=== PATIENT | male | born 1940 | race Two or more races ===

== ENCOUNTER 2017-01-03 09:00 | Outpatient (RCR) | payer MEDICARE, OTHER ==
[~2017-01-03 09:00] MED LIST: ATORVASTATIN CA20 MG ORAL; BENAZEPRIL HCL40 MG ORAL; CLOPIDOGREL75 MG ORAL; COLACE100 MG ORAL; CYCLOBENZAPRINE10 MG ORAL; INSULIN; METOPROLOL TART50 M1 ORAL; PERCOCET 5-3251 EACH ORAL; TAMSULOSIN HCL0.4 MG ORAL; TYLENOL325 MG ORAL; [UNRECOGNIZED DRUG - REMARK]
== END 2017-01-14 | disposition home or self-care (01) ==
LOC: PTY 09:00
DX: G60.9 Hereditary and idiopathic neuropathy, unspecified (principal); R53.1 Weakness; Z91.81 History of falling; I10 Essential (primary) hypertension; E11.9 Type 2 diabetes mellitus without complications
CPT/HCPCS: 97018; 97110; 97140; 97161; G8984; G8985

== ENCOUNTER 2017-01-20 08:45 | Outpatient (RCR) | payer MEDICARE, OTHER | END 2017-02-14 | disposition home or self-care (01) | LOC: PTY 08:45 | DX: G60.9 Hereditary and idiopathic neuropathy, unspecified (principal); R53.1 Weakness; Z91.81 History of falling; I10 Essential (primary) hypertension; E11.9 Type 2 diabetes mellitus without complications ==

== ENCOUNTER 2017-09-15 09:18 | Outpatient (RCR) | payer MEDICARE, OTHER | END 2017-09-16 | disposition home or self-care (01) | LOC: PTY 09:18 | DX: G62.9 Polyneuropathy, unspecified (principal) | CPT/HCPCS: 97035; 97110; 97140; 97162; G8981; G8982 ==

== ENCOUNTER 2017-12-10 16:09 | Outpatient (CLI) | payer MEDICARE, OTHER ==
--- NOTE | 2017-12-10 16:59 | Diagnostic Imaging Report ---
Indication: Cough Technique: 2 views of the chest Comparison: 09/23/2017 Findings: Lungs and pleural spaces are clear. There is again demonstrated elevation of the right hemidiaphragm. The heart size is normal. There are median sternotomy sutures. The bones are unremarkable except for mild degenerative thoracic spondylosis changes Impression: No acute process
== END 2017-12-10 18:09 | disposition home or self-care (01) ==
LOC: RAD 16:09
DX: R05 Cough (principal); M47.894 Other spondylosis, thoracic region
CPT/HCPCS: 71046

== ENCOUNTER 2018-12-15 17:43 | Inpatient (IN) | payer MEDICARE, OTHER ==
[~2018-12-15] VITALS: Ht 162.6 cm; Wt 61.7 kg
--- NOTE | 2018-12-15 19:54 | NUR ---
NURSE NOTES: Received pt from ER staff. Pt awake, alert, and talkative. Family at bedside. Bed in lowest position. Call light within reach. Will continue to monitor.
[2018-12-15 20:00] VITALS: BP 145/55
[2018-12-15 21:56] LABS: BASOPHILS % (AUTO) 0.9 % (0.0-2.0); EOSINOPHILS % (AUTO) 1.6 % (0.0-3.0); HEMATOCRIT 32.2 % (42.0-52.0); HEMOGLOBIN 10.9 G/DL (14.2-18.0); LYMPHOCYTES % (AUTO) 14.4 % (20.0-45.0); MEAN CORPUSCULAR VOLUME 92 FL (80-99); NEUTROPHILS % (AUTO) 75.2 % (45.0-75.0); PLATELET COUNT 164 K/UL (150-450); RED BLOOD COUNT 3.48 M/UL (4.70-6.10); RED CELL DISTRIBUTION WIDTH 12.6 % (11.6-14.8); WHITE BLOOD COUNT 7.8 K/UL (4.8-10.8)
[2018-12-15] MEDS ORDERED: Norco 5mg/325mg tab ORAL PRN (22:15)
[2018-12-15 22:25] LABS: ANION GAP 9 mmol/L (5-15); BLOOD UREA NITROGEN 35 mg/dL (7-18); CALCIUM 8.9 MG/DL (8.5-10.1); CARBON DIOXIDE 27 MMOL/L (21-32); CHLORIDE 104 MMOL/L (98-107); CREATININE 1.5 MG/DL (0.55-1.30); POTASSIUM 3.9 MMOL/L (3.5-5.1); SODIUM 140 MMOL/L (136-145)
[2018-12-15 22:36] LABS: ALANINE AMINOTRANSFERASE 30 U/L (12-78); ALBUMIN 3.5 G/DL (3.4-5.0); ALBUMIN/GLOBULIN RATIO 1.3 (1.0-2.7); ALKALINE PHOSPHATASE 120 U/L (46-116); ASPARTATE AMINO TRANSFERASE 51 U/L (15-37)
--- NOTE | 2018-12-15 23:50 | NUR ---
NURSE NOTES: Pts family stated that he fell last 12/[address] home. Pt has right arm bruising and weak use of the arm. Otherwise skin intact. Lung sounds clear. Vital signs stable. BG elevated, 164, and is answering questions appropriately. Primarily Italian speaking but also speaks Sinhala. 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 RFA 20G placed. EKG showed nsr with inferior infarct of undetermined age. Dr. Steel input orders. Will continue to monitor.
[2018-12-16] VITALS: BP 119/51
--- NOTE | 2018-12-16 00:45 | Progress Note ---
DATE: 12/15/2018 "NOTE: INCOMPLETE DICTATION" CARDIOLOGY PROGRESS NOTE REQUESTING PHYSICIAN: Maxi Douglas M.D. REASON: Syncope in the setting of ischemic heart disease. Satinder Steel M.D. DR: CHAZ JOB#: [id number] CC:
--- NOTE | 2018-12-16 01:45 | Consultation ---
DATE OF CONSULTATION: 12/15/2018 CARDIOLOGY CONSULT CONSULTING PHYSICIAN: Satinder Steel M.D. REQUESTING PHYSICIAN: Maxi Douglas M.D. REASON: Syncope in the setting of ischemic heart disease. HISTORY: This is a 78-year-old male with a longstanding history of ischemic cardiomyopathy with status post coronary artery bypass graft surgery over 20 years ago. He has a known history of left ventricular dysfunction with his baseline ejection fraction in the range of 45%. Last year, he was noted to have an abnormal stress test and underwent coronary angiography, which revealed diffuse disease, but patent grafts and recommendations for medical management were noted. On December 11, 2018, the patient was in his usual state of health, but noted to be walking to a store when he apparently began experiencing dizziness, lightheadedness, and unsteadiness on his feet and passed out. He had a low sugar when paramedics arrived. He was not brought in the emergency room, but sustained significant trauma to his right side and head. He was seen in my office yesterday and referred for radiographs and subsequently because of worsening pain and difficulty with independent function, he was admitted for further care. PAST MEDICAL HISTORY: Coronary artery disease, status post CABG; hypertensive heart disease; insulin-requiring diabetes mellitus; diabetic neuropathy; chronic kidney disease; hyperlipidemia; erectile dysfunction; prostatic hypertrophy; history of urinary retention; and B12 deficiency due to pernicious anemia. MEDICATIONS PRIOR TO ADMISSION: Reviewed and reconciled. ALLERGIES: None known. FAMILY HISTORY: Diabetes in first-degree relatives. REVIEW OF SYSTEMS: Cardiac workup noted above. He does have a history of nonsustained ventricular ectopy. There is no history of asthma or abnormal blood clotting. There is no history of seizure or stroke. He does have significant arterial occlusive disease. He does have prostatic hypertrophy and difficulty voiding at times. His diabetes is managed with insulin. He has had hypoglycemia in the past. There is no history of thyroid disorder. He is on anti-lipid therapy with LDL less than 70. He has not had any change in bowel habits. There is no history of prostate cancer or colon malignancies. PHYSICAL EXAMINATION: VITAL SIGNS: Blood pressure 124/60, pulse 64, and respirations 18. SKIN: Bruising on face, right chest, and lower extremities. There is also abrasion below the left eye. HEENT: Conjunctivae are pink. Pupils are equal, round, and reactive to light and accommodation. Extraocular movements intact. Oropharynx clear. NECK: Supple. Jugular venous pressure normal. LUNGS: Clear. CARDIAC: Regular rhythm and rate. Normal S1 and S2 with a fourth heart sound. Median sternotomy scar. ABDOMEN: Soft and nontender. EXTREMITIES: Without edema. Right arm cannot be raised due to pain at the shoulder site. There are no distal ischemic changes. LABORATORY AND IMAGING DATA: White count 7.8 and hemoglobin 10.9. Troponin 0.03. Albumin 3.5. BUN 35, creatinine 1.5, glucose 188, and potassium 3.9. EKG pending. IMPRESSION: 1. Syncope, possibly hypoglycemic. 2. Multiple contusions. 3. Right shoulder immobility. 4. Ischemic cardiomyopathy. 5. History of ventricular arrhythmia. PLAN: Cardiac monitoring. Hold Plavix. X-rays of the extremities and chest. Hold parameters for antihypertensives. Decrease dose of long-acting insulin and we titrate. We will follow. Satinder Steel M.D. DR: CHAZ JOB#: [id number] CC:
[2018-12-16 04:00] VITALS: BP 131/51
[2018-12-16] MEDS: NovoLOG Insulin Flexpen SUBQ SCH ×4 (06:30→20:51)
[2018-12-16] MEDS ORDERED: NovoLOG Insulin Flexpen SUBQ SCH (06:30)
--- NOTE | 2018-12-16 07:50 | NUR ---
NURSE NOTES: Report received from YESSI Bardales. Patient in RA, denies any pain or SOB, IV patent flushed and SL. Bed in lowest position, side rails upx2, brakes engaged, alarm on. Patient had a recent fall prior to hospitalization, reminder given to use call light. Call light within easy reach.
--- NOTE | 2018-12-16 07:54 | NUR ---
HAND-OFF: Report given to YESSI Cuveas. Pt stable.
[2018-12-16 08:00] VITALS: BP 128/69
[2018-12-16] MEDS ORDERED: Benazepril 10mg tab ONE (08:22)
[2018-12-16] MEDS: Metoprolol 25mg tab ORAL SCH ×2 (08:38→20:56)
[2018-12-16] MEDS: Aspirin Baby 81mg ORAL SCH (08:38)
[2018-12-16 12:00] VITALS: BP 113/56
--- NOTE | 2018-12-16 13:45 | NUR ---
NURSE NOTES: Patient was found wondering around room 204. Patient back to his room. Call made to son, Patient talking to his son at this time. Will continue to reorient.
--- NOTE | 2018-12-16 13:48 | Diagnostic Imaging Report ---
Indication: Right shoulder pain Findings: 3 views of the right shoulder were obtained. Acute nondisplaced fracture of the surgical neck of the right humerus demonstrated. The bones are osteopenic. Alignment is normal. IMPRESSION: Acute right surgical neck fracture
--- NOTE | 2018-12-16 13:49 | Diagnostic Imaging Report ---
Indication: Dyspnea Comparison: 12/10/2017 A single view chest radiograph was obtained. Findings: Sternotomy noted. No definite infiltrate or pulmonary vascular congestion identified. The heart is enlarged. The aorta is mildly enlarged consistent with atherosclerotic vascular disease. The bones are osteopenic. Impression: No acute disease. No change
--- NOTE | 2018-12-16 13:49 | Diagnostic Imaging Report ---
Indication: Pain Findings: 2 views of the right humerus were obtained. Acute surgical neck fracture of the right humerus demonstrated. Remainder of the humeral shaft is normal. Bones are osteopenic. IMPRESSION: Acute fracture of the right humeral neck
[2018-12-16 16:00] VITALS: BP 129/71
--- NOTE | 2018-12-16 17:23 | Cardiology Report ---
APPROVED REPORT EKG Measurement Heart [id number] Normal sinus rhythm Inferior infarct, age undetermined Abnormal ECG
--- NOTE | 2018-12-16 19:04 | NUR ---
CASE MANAGEMENT: REVIEW 78/M PRESENTED TO ED FROM HOME CC: SYNCOPE SI: ORTHOSTATIC HYPOTENSION T 97.0 HR 60 RR 20 BP 113/56 SAT 94% ROOM AIR H/H 10.9/32.2 TROPONIN I 0.033 IS: LOTENSIN PO X1 PATIENT ADMITTED TO TELEMETRY UNIT 12/15/2018 DCP: PATIENT IS FROM HOME
--- NOTE | 2018-12-16 19:40 | NUR ---
HAND-OFF: Report given to Catia. Patient's son at bedside. Sling to be applied on R arm. Plan of care endorsed.
--- NOTE | 2018-12-16 19:50 | NUR ---
NURSE NOTES: Received pt from YESSI Cuevas. Pt awake, alert, and talkative. Family at bedside. Pt expressed how bad he wanted to go home and was educated on the risks of signing the AMA form. Bed in lowest position. Call light within reach. Will continue to monitor.
[2018-12-16 20:00] VITALS: BP 140/54
--- NOTE | 2018-12-16 20:15 | History and Physical Report ---
DATE OF ADMISSION: 12/15/2018 CHIEF COMPLAINT: Multiple falls. HISTORY OF PRESENT ILLNESS: The patient is a pleasant 78-year-old male well known to me. 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 He suffered a fall several days prior to admission. He saw his gang ripsaw operator. He was noted to have significant bruising. There was a concern about the patient's safety. He is now admitted for further evaluation and care. The patient complains of pain in the right arm. He denies any fevers or chills. He has had no chest pain or shortness of breath. PAST MEDICAL HISTORY: As above. PAST SURGICAL HISTORY: Includes a CABG. CURRENT MEDICATIONS: Reconciled and reviewed. ALLERGIES: None. FAMILY HISTORY: None. SOCIAL HISTORY: Negative for tobacco, ethanol, or drugs. REVIEW OF SYSTEMS: GENERAL: No fever or chills. HEENT: Mild headache, but no visual changes. CARDIOPULMONARY: No chest pain or shortness of breath. Positive history of coronary artery bypass graft. GASTROINTESTINAL: No nausea or vomiting. GENITOURINARY: No urgency or frequency. MUSCULOSKELETAL: Positive right shoulder pain. NEUROLOGIC: No history of seizures. PHYSICAL EXAMINATION: VITAL SIGNS: Temperature 98, pulse 71, respirations 20, and blood pressure 128/69. GENERAL: The patient is well-developed male, in no apparent distress. He is awake, alert, and oriented x4. HEENT: There is bruising noted to the right side of his forehead, face, chest, and around the left eye. NECK: Supple. HEART: Regular rate and rhythm. LUNGS: Clear. ABDOMEN: Soft, nontender, and nondistended. EXTREMITIES: Without clubbing, cyanosis, or edema. The patient is unable to mobilize right arm due to significant pain. PERTINENT DATA: White count is 8, hemoglobin 10, hematocrit 33, and platelets of 164,000. Sodium 140, BUN 35, and creatinine . Troponin 0.033. X-ray of the shoulder shows a proximal right humerus fracture. ASSESSMENT: This is a pleasant male with a history of ischemic cardiomyopathy, hypertension, diabetes, and chronic kidney disease, admitted with complaints of falls. This is possibly due to syncope. He has a right humerus fracture sustained likely due to these falls. PLAN: 1. Orthopedics consultation. 2. Cardiology evaluation. 3. Cautious hydration. 4. Monitor orthostatics. 5. Monitor Accu-Cheks. 6. Sliding scale coverage. Maxi Douglas M.D. DR: KAISER JOB#: [id number] CC:
[2018-12-16] MEDS ORDERED: Tamsulosin 0.4mg cap ORAL SCH (21:00)
--- NOTE | 2018-12-16 22:45 | Progress Note ---
DATE: 12/16/2018 CARDIOLOGY PROGRESS NOTE SUBJECTIVE: The patient still has pain on his right side. Unable to move arm. No shortness of breath. Some chest pain referred to his arm region noted. Cardiac monitoring, sinus rhythm, sinus arrhythmia, occasional PAC, no pauses. OBJECTIVE: VITAL SIGNS: Blood pressure 129/71, pulse 68, respiratory rate 20, afebrile. SKIN: Bruising over arms. LUNGS: Clear. CARDIAC: Regular rhythm and rate. Normal S1 and S2 with a fourth heart sound. ABDOMEN: Soft. EXTREMITIES: No edema. LABORATORY AND DIAGNOSTIC DATA: Reviewed. X-ray of the right upper extremity notable for fracture of the humeral head. IMPRESSION: 1. Hypoglycemic syncope. 2. Possible orthostasis contributing to syncope. 3. Right upper extremity humeral fracture. 4. Ischemic cardiomyopathy. 5. Chronic systolic and diastolic congestive heart failure. 6. Insulin-requiring diabetes mellitus. PLAN: 1. Pain control. 2. Titrate insulin. 3. Hold parameters for cardiovascular regimen based on clinical parameters. 4. Orthopedic consultation. 5. DVT prophylaxis. 6. Monitor orthostatics. 7. Continue cardiac monitoring. Satinder Steel M.D. DR: Niko JOB#: [id number] CC:
[2018-12-17] VITALS: BP 136/59
[2018-12-17 04:00] VITALS: BP 117/57
[2018-12-17] MEDS: NovoLOG Insulin Flexpen SUBQ SCH ×2 (06:18→11:49)
[2018-12-17 07:16] LABS: BASOPHILS % (AUTO) 1.6 % (0.0-2.0); EOSINOPHILS % (AUTO) 4.9 % (0.0-3.0); HEMATOCRIT 32.3 % (42.0-52.0); LYMPHOCYTES % (AUTO) 23.5 % (20.0-45.0); MEAN CORPUSCULAR VOLUME 93 FL (80-99); MONOCYTES % (AUTO) 8.4 % (1.0-10.0); NEUTROPHILS % (AUTO) 61.6 % (45.0-75.0); PLATELET COUNT 164 K/UL (150-450); RED BLOOD COUNT 3.47 M/UL (4.70-6.10); RED CELL DISTRIBUTION WIDTH 12.8 % (11.6-14.8); WHITE BLOOD COUNT 6.3 K/UL (4.8-10.8)
--- NOTE | 2018-12-17 07:17 | NUR ---
HAND-OFF: Report given to YESSI Cuevas. Endorsed that pt has no IV and Dr. Steel and Misael made aware. Pt stable.
--- NOTE | 2018-12-17 07:40 | General Progress Note ---
Assessment/Plan Problem List: (1) CAD (coronary artery disease) ICD Codes: I25.10 - Atherosclerotic heart disease of cabaz[place] coronary artery without angina pectoris SNOMED: 88321394 (2) Dementia, Alzheimer's, with behavior disturbance ICD Codes: G30.9 - Alzheimer's disease, unspecified; F02.81 - Dementia in other diseases classified elsewhere with behavioral disturbance SNOMED: 8499584324148 (3) Accelerated essential hypertension ICD Codes: I10 - Essential (primary) hypertension SNOMED: 81982001 (4) Diabetes ICD Codes: E11.9 - Type 2 diabetes mellitus without complications SNOMED: 29495462 (5) Syncope ICD Codes: R55 - Syncope and collapse SNOMED: 005747520 Status: stable Assessment/Plan pain rx anxiolytics as needed ortho eval pending check tfts, b12 etc. Subjective ROS Limited/Unobtainable: Yes Constitutional: Reports: no symptoms HEENT: Reports: no symptoms Cardiovascular: Reports: no symptoms Respiratory: Reports: no symptoms Gastrointestinal/Abdominal: Reports: no symptoms Genitourinary: Reports: no symptoms Neurologic/Psychiatric: Reports: no symptoms Endocrine: Reports: no symptoms Hematologic/Lymphatic: Reports: no symptoms Allergies: Coded Allergies: No Known Allergies (Verified , 10/19/09) All Systems: reviewed and negative except above Subjective confused. pulled out iv. trying to leave the hospital. c/o right shoulder.arm pain. Objective Last 24 Hour Vital Signs Date Time Temp Pulse Resp B/P (MAP) Pulse Ox O2 Delivery O2 Flow Rate FiO2 12/17/18 04:00 64 12/17/18 04:00 97.6 71 18 117/57 (77) 97 12/17/18 00:00 71 12/17/18 00:00 97.8 82 18 136/59 (84) 97 12/16/18 21:00 Room Air 12/16/18 20:56 78 140/54 12/16/18 20:00 75 12/16/18 20:00 97.5 78 17 140/54 (82) 97 12/16/18 16:00 90 12/16/18 16:00 97.3 68 20 129/71 (90) 97 12/16/18 12:00 97.9 60 20 113/56 (75) 97 12/16/18 12:00 61 12/16/18 09:26 128/61 12/16/18 09:00 Room Air 12/16/18 08:38 71 128/69 12/16/18 08:00 97.9 71 20 128/69 (88) 99 12/16/18 08:00 78 Intake and Output 12/16/18 12/17/18 19:00 07:00 Intake Total 360 ml Balance 360 ml Intake Oral 360 ml # Voids 4 3 Laboratory Tests 12/17/18 06:40: White Blood Count 6.3, Red Blood Count 3.47L, Hemoglobin 11.0L, Hematocrit 32.3L , Mean Corpuscular Volume 93, Mean Corpuscular Hemoglobin 31.7H, Mean Corpuscular Hemoglobin Concent 34.1, Red Cell Distribution Width 12.8, Platelet Count 164, Mean Platelet Volume 6.9, Neutrophils (%) (Auto) 61.6, Lymphocytes (% ) (Auto) 23.5, Monocytes (%) (Auto) 8.4, Eosinophils (%) (Auto) 4.9H, Basophils (%) (Auto) 1.6, Sodium Level [Pending], Potassium Level [Pending], Chloride Level [Pending], Carbon Dioxide Level [Pending], Blood Urea Nitrogen [Pending], Creatinine [Pending], Estimat Glomerular Filtration Rate [Pending], Glucose Level [Pending], Calcium Level [Pending], Magnesium Level [Pending], Total Bilirubin [Pending], Aspartate Amino Transf (AST/SGOT) [Pending], Alanine Aminotransferase (ALT/SGPT) [Pending], Alkaline Phosphatase [Pending], Total Protein [Pending], Albumin [Pending], Globulin [Pending] Height (Feet): 5 Height (Inches): 4.00 Weight (Pounds): 136 General Appearance: WD/WN, alert Neck: supple Cardiovascular: normal rate Respiratory/Chest: chest wall non-tender, lungs clear, normal breath sounds Abdomen: normal bowel sounds, non tender, soft, no organomegaly Edema: no edema noted Arm (L), no edema noted Arm (R), no edema noted Leg (L), no edema noted Leg (R), no edema noted Pedal (L), no edema noted Pedal (R), no edema noted Generalized Maxi Douglas MD Dec 17, 2018 07:40
[2018-12-17 07:43] LABS: ALANINE AMINOTRANSFERASE 30 U/L (12-78); ALBUMIN 3.4 G/DL (3.4-5.0); ALKALINE PHOSPHATASE 112 U/L (46-116); ANION GAP 11 mmol/L (5-15); ASPARTATE AMINO TRANSFERASE 39 U/L (15-37); BILIRUBIN,TOTAL 0.8 MG/DL (0.2-1.0); BLOOD UREA NITROGEN 32 mg/dL (7-18); CALCIUM 8.8 MG/DL (8.5-10.1); CARBON DIOXIDE 23 MMOL/L (21-32); CHLORIDE 107 MMOL/L (98-107); CREATININE 1.3 MG/DL (0.55-1.30); POTASSIUM 4.3 MMOL/L (3.5-5.1); SODIUM 141 MMOL/L (136-145)
[2018-12-17 08:00] VITALS: BP 117/77
--- NOTE | 2018-12-17 08:54 | NUR ---
REHAB MED PT NOTE CONSULT RECEIVED, EVAL COMPLETED, PATIENT WILL BENEFIT FROM SKILLED PT DURING STAY FOR RETURN TO [facility]. AWAITING ORTHO CONSULT REGARDING RUE FRACTURE PER RAD REPORT. FOLLOWING ORTHO CONSULT WILL CONTINUE WITH FURTHER REHAB RECOMMENDATIONS AND PLAN, UNTIL THEN PHYSICAL THERAPY WILL WORK ON BALANCE AND GAIT AND TRANSFER TRAINING WITH PT WITH [facility] UNTIL FURTHER INSTRUCTION FROM ORTHO MD. PLAN OF CARE INITIATED. RON WALLACE PT DPT Addendum: 12/17/18 at 0854 by RON WALLACE PT Amended: Links added.
[2018-12-17] MEDS: Aspirin Baby 81mg ORAL SCH (09:18)
[2018-12-17] MEDS: Metoprolol 25mg tab ORAL SCH (09:20)
--- NOTE | 2018-12-17 10:31 | NUR ---
MRI BRAIN COMPLETED.
[2018-12-17 12:00] VITALS: BP 123/67
--- NOTE | 2018-12-17 12:16 | Diagnostic Imaging Report ---
Indication: Syncope, altered level consciousness Technique: sagittal T1 fast spin echo, axial T1 FLAIR, axial T2 FLAIR, axial T2 FS PROPELLER, axial T2* GRE, axial diffusion weighted images. ADC and exponential ADC maps generated Comparison: 10/20/2009, also head CT 12/15/2014 Findings: No abnormal areas of restricted diffusion to suggest acute infarction. No acute hemorrhage or edema. No mass effect nor midline shift. There is age-related enlargement of the ventricles and extra axial CSF spaces. There is periventricular deep white matter high T2 signal. There is an area of encephalomalacia involving the posterior right temporal lobe which is slightly larger than that seen on the previous 2008 MRI but corresponds to the degree of abnormality seen on the CT scan. Old lacunar infarct is again demonstrated in the right basal ganglia. The vascular flow voids are preserved.. The orbits are unremarkable. There is minimal right maxillary sinus mucosal thickening. 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
--- NOTE | 2018-12-17 17:10 | NUR ---
NURSE NOTES: Called and confirmed with Dr. Steel (Jacqueline), Patient doesn't have any medications on discharge list. Was informed to continue home meds, per son and Dr. Steel's office (Jacqueline)
--- NOTE | 2018-12-17 17:30 | NUR ---
NURSE NOTES: Patient's belongings checked with Patient's son, signed and filed. Patient to resume home medications and to follow up with Dr. Armendariz and Dr. Steel per son. Patient's VS stable. Early dinner delivered. Patient refused glucose check. Patient has no IV. Name band removed. hospital monitor removed cleaned and stored. Patient package given to Patient's son. Patient left floor safely.
--- NOTE | 2018-12-17 21:45 | Progress Note ---
DATE: 12/17/2018 SUBJECTIVE: The patient had no issues overnight. He is doing relatively well. His pain is well controlled at the right humerus. OBJECTIVE: Examination shows the patient is flexing and extending his right elbow, wrist, and fingers. He is having some discomfort in the right arm, but no significant swelling. ASSESSMENT: Right 2-part proximal humerus fracture. DISCUSSION: At this point, stable injury where he has slightly minimal displacement. What I recommend at this point is still nonweightbearing with the right arm, begin to actively right elbow, wrist, and fingers and begin to see him back in 2 weeks time with repeat imaging studies. If his x-rays look pretty good, then we can begin some gentle Codman exercises. Formal physical therapy may be reasonable to start at 6 weeks. Kevin Armendariz M.D. DR: LYNETTE JOB#: [id number] CC:
--- NOTE | 2018-12-17 22:30 | Progress Note ---
DATE: 12/17/2018 SUBJECTIVE: The patient was seen and assessed with Dr. Armendariz, the orthopedic surgeon, who felt that nonsurgical management was appropriate at this time. The patient has not had any chest pain or shortness of breath. No dizziness, lightheadedness, or loss of consciousness. He is anxious to go home. OBJECTIVE: VITAL SIGNS: Afebrile, blood pressure 117/57, pulse 71, and respirations 18. Monitored rhythm sinus, no ectopy. SKIN: Ecchymoses. LUNGS: Clear. CARDIAC: Regular. Normal S1, S2. ABDOMEN: Soft. EXTREMITIES: Decreased range of motion on the right. No edema. LABORATORY DATA: White count 6.3, hemoglobin 11. Potassium 4.3, BUN 32, creatinine 1.3. B12 454. Ammonia level normal. TSH 3. Glucose 195. IMPRESSION: 1. Orthostatic syncope, resolved. 2. Ischemic cardiomyopathy with stable angina. 3. Hypovolemia and dehydration with acute kidney injury, corrected with hydration. 4. Right upper extremity humeral fracture, being treated nonsurgically. 5. Insulin-requiring diabetes mellitus, now with increased blood glucose levels. PLAN: 1. Maintain current cardiovascular regimen including antiplatelet therapy. 2. Right upper extremity sling. 3. Follow up with Orthopedics. 4. Maintain adequate oral hydration. 5. Cardiovascular regimen reviewed with dosing adjustments discussed with the patient. 6. Advance insulin dose towards prior baseline and monitor glucose as an outpatient. 7. Outpatient cardiology followup arranged. Satinder Steel M.D. : Niko JOB#: [id number] CC:
--- NOTE | 2018-12-17 22:45 | Consultation ---
DATE OF CONSULTATION: 12/16/2018 ORTHOPEDIC CONSULTATION CHIEF COMPLAINT: Right shoulder pain. HISTORY OF PRESENT ILLNESS: The patient is a pleasant 78-year-old, Kosovan-speaking gentleman, who was admitted for syncope. He right shoulder pain. Imaging studies were obtained, which showed a possible fracture, therefore, orthopedic consultation was obtained for further care and recommendation. PAST MEDICAL HISTORY: Per intake chart. SURGICAL HISTORY: Per intake chart. MEDICATIONS: Per intake chart. PHYSICAL EXAMINATION: The patient has pain in the right humerus with minimal swelling. Radial and ulnar pulses +2. The patient can flex and extend his wrist. IMAGING STUDIES: Show a two-part proximal humerus fracture. ASSESSMENT: Right two-part proximal humerus fracture. PLAN: what I would recommend is a sling and immobilization. He can perform active range of motion of the right elbow, wrist, and fingers nonweightbearing. I would like to see him back in 2 to 3 weeks. At that point, we will begin some for the shoulder. Ultimately, start physical therapy at 6 weeks. Kevin Armendariz M.D. DR: LYNETTE JOB#: [id number] CC:
--- NOTE | 2018-12-18 15:33 | Discharge Summary ---
Discharge Summary Discharge Summary _ DATE OF ADMISSION: 12/15/2018 DATE OF DISCHARGE: 12/17/2018 CONSULTANTS: Dr. Satinder Armendariz BRIEF HOSPITAL COURSE: Patient is a 78-year-old male, with history of ischemic cardiomyopathy, diabetes , hypertension, hypertensive heart disease, chronic kidney disease and BPH, who presented initially to manager audit office with complaints of falls. Apparently he suffered a fall several days prior to admission. On December 11, 2018, the patient was in his usual state of health, but while walking, he apparently experienced dizziness, lightheadedness and unsteadiness and passed out. He had low sugar when paramedics arrived. He was not taken to the emergency room at that time, but sustained significant trauma to the right side of the head. He presented to his manager audit's office and was noted to have significant bruising. He was referred for radiographs. There was concern about patient's safety. Because of worsening pain and difficulty with independent function, he was admitted for further care. He was placed on phototypesetting equipment monitor. Plavix was placed on hold. Troponin was negative. He was given pain control. Blood glucose was monitored. Orthostatic vitals were checked. He was given IV hydration. Right shoulder x-ray showed an acute fracture of the surgical neck of the right humerus. Right forearm x-ray showed acute fracture of the right humeral neck. 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 Patient was confused. He pulled out the IV. He was given anxiolytics. TSH and B12 and ammonia level were normal. Orthopedic surgeon was consulted. Imaging studies were reviewed. Patient had a right 2 part proximal humerus fracture. He was recommended sling and immobilization. Recommend to follow-up in 2-3 weeks for repeat imaging. He was recommended to start physical therapy at 6 weeks. Patient did not have any chest pain or shortness of breath. There was no dizziness, lightheadedness or loss of consciousness. Orthostatic syncope resolved. He was advised to keep right upper arm sling. He was advised to continue antiplatelet therapy and maintain adequate oral hydration. He was eventually discharged home. FINAL DIAGNOSES: Orthostatic syncope, resolved Ischemic cardiomyopathy with stable angina Hypovolemia and dehydration with acute kidney injury, corrected with hydration Right upper extremity humeral fracture, being treated nonsurgically Insulin requiring diabetes mellitus Coronary artery disease Dementia, Alzheimer's with behavior disturbance Accelerated essential hypertension DISPOSITION: Patient was discharged home. DISCHARGE INSTRUCTIONS: Follow-up in a week. I have been assigned to complete a discharge summary on this account, I was not involved with the patient's management. Lovely Prakash NP Dec 18, 2018 15:33
== END 2018-12-17 17:30 | disposition home or self-care (01) | DRG 312 ==
LOC: 2E 18:56
DX: I95.1 Orthostatic hypotension (principal); S42.224A 2-part nondisplaced fracture of surgical neck of right humerus, initial encounter for closed fracture; I50.42 Chronic combined systolic (congestive) and diastolic (congestive) heart failure; F02.81 Dementia in other diseases classified elsewhere, unspecified severity, with behavioral disturbance; N17.9 Acute kidney failure, unspecified; I25.118 Atherosclerotic heart disease of native coronary artery with other forms of angina pectoris; W18.30XA Fall on same level, unspecified, initial encounter; Y92.89 Other specified places as the place of occurrence of the external cause; I25.5 Ischemic cardiomyopathy; I13.10 Hypertensive heart and chronic kidney disease without heart failure, with stage 1 through stage 4 chronic kidney disease, or unspecified chronic kidney disease; N18.9 Chronic kidney disease, unspecified; E11.22 Type 2 diabetes mellitus with diabetic chronic kidney disease; E11.40 Type 2 diabetes mellitus with diabetic neuropathy, unspecified; N40.0 Benign prostatic hyperplasia without lower urinary tract symptoms; I25.10 Atherosclerotic heart disease of native coronary artery without angina pectoris; Z95.1 Presence of aortocoronary bypass graft; Z79.4 Long term (current) use of insulin; E78.5 Hyperlipidemia, unspecified; T14.8XXA Other injury of unspecified body region, initial encounter; I11.0 Hypertensive heart disease with heart failure; G30.9 Alzheimer's disease, unspecified; E86.1 Hypovolemia; E86.0 Dehydration; Z91.81 History of falling
CPT/HCPCS: 36415; 70551; 71045; 80053; 82140; 82607; 82962; 83735; 84443; 84484; 85025; 93005; J1815

== ENCOUNTER 2020-01-14 15:08 | Inpatient (IN) | payer MEDICARE, OTHER ==
[~2020-01-14] VITALS: Ht 162.6 cm; Wt 73.5 kg
[2020-01-14 20:00] VITALS: BP 142/71
--- NOTE | 2020-01-14 20:30 | NUR ---
NURSE NOTES: Pt was admitted directly from Dr Steel's office for CHF, very edematous feet. Pt is alert and oriented x4, primarily German speaking, son Vic at bedside to translate and provide home meds. Pt's son took all his belongings home except his prescription glasses which pt is wearing. Pt was placed on liquor department manager and oriented to room and unit. Pt verbalized understanding of fall precautions. pt is currently in bed in semi fowlers, bed is locked in lowest position and side rails x2, bed alarm with urinal at bedside. Calling Dr Steel for admitting orders. will continue to monitor
[2020-01-14] MEDS ORDERED: Milk of Magnesia 30ml Ud ORAL PRN (22:00)
[2020-01-14 23:29] LABS: BASOPHILS % (AUTO) 1.2 % (0.0-2.0); EOSINOPHILS % (AUTO) 3.1 % (0.0-3.0); HEMATOCRIT 30.6 % (42.0-52.0); HEMOGLOBIN 10.3 G/DL (14.2-18.0); LYMPHOCYTES % (AUTO) 19.2 % (20.0-45.0); MEAN CORPUSCULAR VOLUME 88 FL (80-99); MONOCYTES % (AUTO) 9.5 % (1.0-10.0); PLATELET COUNT 120 K/UL (150-450); RED BLOOD COUNT 3.47 M/UL (4.70-6.10); RED CELL DISTRIBUTION WIDTH 12.9 % (11.6-14.8); WHITE BLOOD COUNT 6.2 K/UL (4.8-10.8)
[2020-01-14 23:42] LABS: ALANINE AMINOTRANSFERASE 18 U/L (12-78); ALBUMIN 3.4 G/DL (3.4-5.0); ALBUMIN/GLOBULIN RATIO 1.1 (1.0-2.7); ALKALINE PHOSPHATASE 131 U/L (46-116); ANION GAP 7 mmol/L (5-15); ASPARTATE AMINO TRANSFERASE 17 U/L (15-37); BILIRUBIN,TOTAL 0.7 MG/DL (0.2-1.0); BLOOD UREA NITROGEN 24 mg/dL (7-18); CALCIUM 8.8 MG/DL (8.5-10.1); CARBON DIOXIDE 32 MMOL/L (21-32); CHLORIDE 105 MMOL/L (98-107); CREATININE 1.5 MG/DL (0.55-1.30); POTASSIUM 3.8 MMOL/L (3.5-5.1); SODIUM 144 MMOL/L (136-145)
[2020-01-15] VITALS: BP 121/56
--- NOTE | 2020-01-15 | Consultation ---
DATE OF CONSULTATION: 01/14/2020 CARDIOLOGY CONSULTATION CONSULTING PHYSICIAN: Satinder Steel M.D. REFERRING PHYSICIAN: Maxi Douglas M.D. REASON FOR CONSULTATION: Refractory congestive heart failure. HISTORY OF PRESENT ILLNESS: This is an 79-year-old male with a known history of ischemic heart disease and prior CABG. He has been managed medically for over 15 years and has maintained a stable cardiovascular status. His prior echocardiograms within the last few months have revealed an ejection fraction in the range of 45%. He had an cardiac catheterization performed in 2018 that revealed patent bypass grafts with diffuse cahto disease and medical therapy was recommended to continue at that time. He has class 0 angina. Over the past few weeks, however, he has had progressive edema and shortness of breath. He has been compliant with medications. He has not had any chest pain. His electrocardiogram has revealed no acute changes. He was started on higher doses of diuretics about two weeks ago. He has improved but inadequately and has had worsening shortness of breath over the last evening prompting hospitalization for IV therapy. PAST MEDICAL HISTORY: Coronary artery disease, history of coronary artery bypass graft, stable angina, acute on chronic diastolic and systolic congestive heart failure, peripheral artery disease, history of toe amputation, insulin-requiring diabetes mellitus, diabetic microangiopathy, diabetic neuropathy, chronic kidney disease, hyperlipidemia, prostatic hypertrophy, and erectile dysfunction. MEDICATIONS: Reviewed and reconciled. ALLERGIES: None known. SOCIAL HISTORY: Nonsmoker. No alcohol or substance abuse. REVIEW OF SYSTEMS: No fevers or chills. He received a flu vaccination this season. No history of asthma or abnormal blood clotting. No history of seizure or stroke. Diabetes managed with insulin. A1c in the range of 7.5 to 8.5. He is euthyroid. He has had prostatic hypertrophy. He is on tamsulosin. There is no history of prostate cancer. He has not had any change in bowel habits. The patient has been on Viagra intermittently for sexual activity. PHYSICAL EXAMINATION: VITAL SIGNS: Afebrile. Blood pressure 142/71, pulse 84, respirations 22. HEENT: Normocephalic and atraumatic. Conjunctivae pink. Oropharynx clear. NECK: Supple. Jugular venous pressure elevated. LUNGS: Bilateral rales. CARDIAC: Regular rhythm and rate. Normal S1, S2. A 1/6 systolic murmur at lower left sternal border. ABDOMEN: Soft, nontender. No ascites. EXTREMITIES: 2+ bilateral pretibial edema. NEUROLOGIC: Nonfocal. Amputation of first toe on the left noted. Distal pulses diminished, but perfusion is adequate. DIAGNOSTIC DATA: An EKG pending. IMPRESSION: 1. Acute on chronic systolic and diastolic congestive heart failure. 2. Ischemic cardiomyopathy. 3. Insulin-requiring diabetes mellitus. 4. Hypertensive heart disease. 5. Peripheral artery disease. PLAN: 1. Cardiac monitoring. 2. Diuresis with intravenous loop diuretic. 3. Natriuretic peptide essay and troponin level to be checked. 4. Titration of anti-failure regimen as well as diuretic dose. 5. Topical nitrates. Satinder Steel M.D. DR: PREMA JOB#: [id number] CC:
[2020-01-15 04:00] VITALS: BP 126/58
[2020-01-15] MEDS: NovoLOG Insulin Flexpen SUBQ SCH ×4 (06:30→21:00)
[2020-01-15] MEDS ORDERED: NovoLOG Insulin Flexpen SUBQ SCH (06:30)
[2020-01-15] MEDS: Nitroglycerin 2% oint pkt TOPIC SCH ×3 (06:38→17:14)
--- NOTE | 2020-01-15 07:55 | NUR ---
HAND-OFF: Report given to YESSI Chen.
[2020-01-15 08:00] VITALS: BP 138/60
--- NOTE | 2020-01-15 08:27 | NUR ---
NURSE NOTES: Patient stable AOx4. No s/sx of distress on RA. RR even and unlabored. Side rails upx2, call light within reach, bed low and locked.
[2020-01-15] MEDS: Docusate 100mg cap ORAL SCH ×2 (09:26→17:14)
[2020-01-15] MEDS: Metoprolol Succinate XL 25mg tab ORAL SCH (09:27)
[2020-01-15] MEDS: Heparin 5000 units/ml inj SUBQ SCH ×2 (09:35→21:00)
[2020-01-15] MEDS: Spironolactone 25mg tab ORAL SCH (09:36)
[2020-01-15 12:00] VITALS: BP 133/61
--- NOTE | 2020-01-15 12:09 | Diagnostic Imaging Report ---
EXAM: US Duplex Bilateral Lower Extremities Veins CLINICAL HISTORY: DVT TECHNIQUE: Real-time duplex ultrasound scan of the bilateral lower extremity veins integrating B-mode two-dimensional vascular structure, Doppler spectral analysis, color flow Doppler imaging and compression. COMPARISON: No relevant prior studies available. FINDINGS: Right deep veins: Unremarkable. No DVT in the right common femoral, femoral, proximal deep femoral or popliteal veins. The veins demonstrate normal color flow, are normally compressible, with normal phasic flow and/or augmentation response. Right superficial veins: Unremarkable. No thrombus in the visualized right great saphenous vein. Left deep veins: Unremarkable. No DVT in the left common femoral, femoral, proximal deep femoral or popliteal veins. The veins demonstrate normal color flow, are normally compressible, with normal phasic flow and/or augmentation response. Left superficial veins: Unremarkable. No thrombus in the visualized left great saphenous vein. Soft tissues: No acute findings. No popliteal cyst. IMPRESSION: Normal bilateral lower extremity duplex venous ultrasound.
[2020-01-15 16:00] VITALS: BP 130/61
--- NOTE | 2020-01-15 19:00 | History and Physical Report ---
DATE OF ADMISSION: 01/14/2020 CHIEF COMPLAINT: CHF exacerbation. HISTORY OF PRESENT ILLNESS: The patient is an 79-year-old male, well known to me. He has history of ischemic cardiomyopathy and diabetes. He has a prior history of a CABG. He presented from home with complaints of worsening lower extremity edema and mild shortness of breath. According to the patient, he has been compliant with his medications. He has been compliant with a low-salt diet. Despite all diuretic therapy, he has had worsening lower extremity edema and shortness of breath. As he has failed to respond to outpatient treatment, he is now admitted for further evaluation and care. PAST MEDICAL HISTORY: As above with history of CAD, hypertension, hypertensive heart disease, diabetic neuropathy, nephropathy, history of BPH, and history of erectile dysfunction. CURRENT MEDICATIONS: Reconciled and reviewed. ALLERGIES: None. FAMILY HISTORY: None. SOCIAL HISTORY: Negative for tobacco, ethanol, or drugs. REVIEW OF SYSTEMS: GENERAL: No fever or chills. HEENT: No headaches or visual changes. CARDIOPULMONARY: No chest pain. Mild shortness of breath. Mild lower extremity edema. GASTROINTESTINAL: No nausea or vomiting. GENITOURINARY: No urgency or frequency. MUSCULOSKELETAL: No joint pain or swelling. NEUROLOGIC: No history of seizures. PHYSICAL EXAMINATION: VITAL SIGNS: Temperature was 98, pulse 79, respirations 20, and blood pressure 113/60. GENERAL: The patient is well developed, in no apparent distress. HEART: Regular rate and rhythm. LUNGS: Clear. ABDOMEN: Soft, nontender, nondistended. EXTREMITIES: Showed 1 to 2+ pitting edema. LABORATORY DATA: Sodium 144, potassium 3.8, BUN 24, creatinine 1.5. Natriuretic peptide level was 4000. Troponin was negative. White count was 6 and hemoglobin 10. ASSESSMENT: This is a pleasant 79-year-old male with history of ischemic cardiomyopathy, CABG, hypertension, chronic kidney disease, history of BPH, and peripheral artery disease, admitted with complaints of worsening lower extremity edema secondary to acute on chronic heart failure exacerbation. PLAN: Cardiology consultation. IV diuretic therapy with close monitoring of renal function and electrolytes. Continue outpatient diabetic regimen. Monitor blood sugars. DVT and stress ulcer prophylaxis will be instituted. Plan of care was discussed at bedside with the patient. Maxi Douglas M.D. DR: KRUNAL JOB#: [id number] CC:
--- NOTE | 2020-01-15 19:37 | NUR ---
HAND-OFF: Report given to Joya Mendez RN. Patient stable. Plan of care endorsed.
--- NOTE | 2020-01-15 19:40 | NUR ---
NURSE NOTES: Patient stable AOx4, but forgetful at times, high fall risk. No s/sx of distress on RA. RR even and unlabored. Side rails upx2, call light within reach, bed low and locked, bed alarm on.
[2020-01-15 20:00] VITALS: BP 147/62
[2020-01-15] MEDS: Tamsulosin 0.4mg cap ORAL SCH (21:08)
--- NOTE | 2020-01-15 22:30 | NUR ---
NURSE NOTES: Patient is trying to climb out of bed, unsteady gait, needs to call but requires frequent intervention, called pt son Vic and family came to discuss with pt staying in bed and they said they will return in the morning to visit him
[2020-01-16] VITALS: BP 104/44
[2020-01-16 04:00] VITALS: BP 154/77
--- NOTE | 2020-01-16 05:45 | Progress Note ---
DATE: 01/15/2020 CARDIOLOGY PROGRESS NOTE SUBJECTIVE: The patient is anxious to go home. He is not happy with him being confined to the hospital and he has called his son to pick him up. I have spent time explaining the reason for continued hospitalization, which includes IV therapy for diuresis since he failed outpatient management. OBJECTIVE: VITAL SIGNS: Blood pressure 130/61, heart rate 78, respiratory rate 20, and afebrile. LUNGS: Diminished breath sounds. Few rales. CARDIAC: Regular rhythm and rate. Normal S1 and S2. ABDOMEN: Soft. Mild ascites. EXTREMITIES: 1 to 2+ dependent lower extremity edema. DIAGNOSTIC DATA: Venous duplex scan is negative for DVT. IMPRESSION: 1. Acute on chronic systolic and diastolic congestive heart failure. 2. Ischemic cardiomyopathy. 3. Insulin-requiring diabetes mellitus. 4. Diabetic microangiopathy. 5. Peripheral artery disease. 6. History of right first toe amputation. 7. Hypertensive heart disease. 8. History of CABG. 9. Chronic ischemic heart disease with stable angina. PLAN: 1. Continued IV diuretic therapy. 2. Continue titration of anti-failure and antianginal regimen. 3. Replace potassium as needed. 4. Trend natriuretic peptide assay. 5. Titrate insulin dosing. 6. DVT prophylaxis. Satinder Steel M.D. DR: NAS JOB#: [id number] CC:
[2020-01-16] MEDS: Nitroglycerin 2% oint pkt TOPIC SCH ×3 (06:01→17:40)
[2020-01-16] MEDS: NovoLOG Insulin Flexpen SUBQ SCH ×4 (06:02→21:00)
[2020-01-16 08:00] VITALS: BP 120/51
--- NOTE | 2020-01-16 08:02 | NUR ---
NURSE NOTES: Received report from YESSI Koo. Patient sitting up in bed bed, watching television, awake and alert to name, bed in lowest position, call light within reach, oxygen at 2 liters nasal cannula, in no apparent distress.
--- NOTE | 2020-01-16 08:04 | NUR ---
HAND-OFF: Report given to YESSI Lal.
[2020-01-16 08:46] LABS: ALANINE AMINOTRANSFERASE 17 U/L (12-78); ALBUMIN 3.8 G/DL (3.4-5.0); ALKALINE PHOSPHATASE 128 U/L (46-116); ANION GAP 7 mmol/L (5-15); ASPARTATE AMINO TRANSFERASE 21 U/L (15-37); BILIRUBIN,TOTAL 1.1 MG/DL (0.2-1.0); BLOOD UREA NITROGEN 24 mg/dL (7-18); CARBON DIOXIDE 34 MMOL/L (21-32); CHLORIDE 101 MMOL/L (98-107); CREATININE 1.5 MG/DL (0.55-1.30); POTASSIUM 4.2 MMOL/L (3.5-5.1); SODIUM 142 MMOL/L (136-145)
[2020-01-16 08:50] LABS: BILIRUBIN,DIRECT 0.1 MG/DL (0.0-0.3)
[2020-01-16] MEDS: Spironolactone 25mg tab ORAL SCH (08:59)
[2020-01-16] MEDS: Metoprolol Succinate XL 25mg tab ORAL SCH (08:59)
[2020-01-16] MEDS: Docusate 100mg cap ORAL SCH ×2 (08:59→17:40)
[2020-01-16] MEDS: Heparin 5000 units/ml inj SUBQ SCH ×2 (09:01→21:13)
--- NOTE | 2020-01-16 10:34 | General Progress Note ---
Assessment/Plan Problem List: (1) CHF (congestive heart failure), NYHA class II ICD Codes: I50.9 - Heart failure, unspecified SNOMED: 688716568, 294055998 (2) CAD (coronary artery disease) ICD Codes: I25.10 - Atherosclerotic heart disease of [place] coronary artery without angina pectoris SNOMED: 77843578 (3) Diabetes ICD Codes: E11.9 - Type 2 diabetes mellitus without complications SNOMED: 85662362 (4) Accelerated essential hypertension ICD Codes: I10 - Essential (primary) hypertension SNOMED: 01017273 Status: stable, progressing Assessment/Plan: cont current rx diuresis elevated legs ?dc planning per cards Subjective ROS Limited/Unobtainable: No Constitutional: Reports: malaise, weakness HEENT: Reports: no symptoms Cardiovascular: Reports: edema Respiratory: Reports: no symptoms Gastrointestinal/Abdominal: Reports: no symptoms Genitourinary: Reports: no symptoms Neurologic/Psychiatric: Reports: no symptoms Endocrine: Reports: no symptoms Hematologic/Lymphatic: Reports: no symptoms Allergies: Coded Allergies: No Known Allergies (Verified , 10/19/09) All Systems: reviewed and negative except above Subjective no complaints. no chest pain or sob. Lower ext edema resolved. duplex neg Objective Last 24 Hour Vital Signs Date Time Temp Pulse Resp B/P (MAP) Pulse Ox O2 Delivery O2 Flow Rate FiO2 01/16/20 08:59 80 120/51 01/16/20 08:59 120/51 01/16/20 08:00 97.9 80 20 120/51 (74) 97 01/16/20 06:01 154/77 01/16/20 04:00 98.9 88 20 154/77 (102) 95 01/16/20 04:00 79 01/16/20 00:00 73 01/16/20 00:00 99.0 78 18 104/44 (64) 97 01/15/20 21:11 Room Air 01/15/20 20:01 83 01/15/20 20:00 96.8 78 19 147/62 (90) 97 01/15/20 20:00 73 01/15/20 17:14 130/61 01/15/20 16:00 82 01/15/20 16:00 97.3 78 20 130/61 (84) 100 01/15/20 12:47 133/61 01/15/20 12:00 69 01/15/20 12:00 97.9 83 20 133/61 (85) 98 Intake and Output 01/15/20 01/16/20 19:00 07:00 Intake Total 1200 ml Output Total 400 ml Balance 800 ml Intake Oral 1200 ml Output Urine Total 400 ml # Voids 5 2 Laboratory Tests 01/16/20 07:35: Sodium Level 142, Potassium Level 4.2, Chloride Level 101, Carbon Dioxide Level 34H, Anion Gap 7, Blood Urea Nitrogen 24H, Creatinine 1.5H, Estimat Glomerular Filtration Rate 45.0, Glucose Level 94#, Calcium Level 10.0, Magnesium Level 2.2 , Total Bilirubin 1.1H, Direct Bilirubin 0.1, Aspartate Amino Transf (AST/SGOT) 21, Alanine Aminotransferase (ALT/SGPT) 17, Alkaline Phosphatase 128H, Pro-B- Type Natriuretic Peptide 5217H, Total Protein 7.5, Albumin 3.8, Globulin 3.7, Albumin/Globulin Ratio 1.0 Height (Feet): 5 Height (Inches): 4.00 Weight (Pounds): 162 General Appearance: WD/WN, alert Neck: non-tender, normal alignment, supple Cardiovascular: normal rate, regular rhythm Respiratory/Chest: chest wall non-tender, lungs clear, normal breath sounds, no respiratory distress, no accessory muscle use Abdomen: normal bowel sounds, non tender, soft, no organomegaly, no mass Genitourinary/Rectal: normal genital exam Edema: no edema noted Arm (L), no edema noted Arm (R), no edema noted Leg (L), no edema noted Leg (R), no edema noted Pedal (L), no edema noted Pedal (R), no edema noted Generalized Neurologic: alert, oriented x 3, responsive Maxi Douglas MD Jan 16, 2020 10:33
--- NOTE | 2020-01-16 11:08 | Diagnostic Imaging Report ---
EXAM: XR Chest, 1 View CLINICAL HISTORY: SOB TECHNIQUE: Frontal view of the chest. COMPARISON: Chest x-ray, 12/16/18 FINDINGS: Lungs: Hypoventilatory lungs. Mild vascular and interstitial prominence. Bibasilar lung atelectasis. Linear atelectasis left midlung. Pleural space: Mild thickening of the right minor fissure may be trace pleural effusion. No pneumothorax. Heart: Cardiomegaly. Mediastinum: Unremarkable. Bones/joints: Median sternotomy. IMPRESSION: 1. Hypoventilatory lungs. Bibasilar lung atelectasis. 2. Mild vascular and interstitial prominence. 3. Mild thickening of the right minor fissure may be trace pleural effusion.
[2020-01-16 12:00] VITALS: BP 102/52
[2020-01-16 16:00] VITALS: BP 113/74
--- NOTE | 2020-01-16 19:36 | NUR ---
HAND-OFF: Report given to Hanane Mendez RN. Patient sitting in bed in semi-Donaldson's position, watching television, on room air, bed in lowest position, call light within reach, no SOB, no c/o pain, in no apparent distress.
[2020-01-16 20:00] VITALS: BP 121/60
[2020-01-16] MEDS: Tamsulosin 0.4mg cap ORAL SCH (21:12)
--- NOTE | 2020-01-16 22:30 | Progress Note ---
DATE: 01/16/2020 CARDIOLOGY PROGRESS NOTE SUBJECTIVE: Intake and output is positive according to records. The patient is still short of breath. Leg edema is slightly better. PHYSICAL EXAMINATION: VITAL SIGNS: Blood pressure 120/51, pulse 80, respiratory rate 20, afebrile. EXTREMITIES: A 1+ edema. LUNGS: Diminished breath sounds. Few rales. NECK: Jugular venous pressure elevated. CARDIAC: Regular rhythm rate. Normal S1, S2 with a fourth heart sound. pBNP increased to 5217 from 3995 on admit. BUN/Cr 24/1.5 IMPRESSION: 1. Ischemic cardiomyopathy. 2. Acute on chronic systolic and diastolic congestive heart failure, with rising pre-BNP levels. 3. Insulin-requiring diabetes with complications. 4. Hypertensive heart disease. 5. Peripheral artery disease with history of toe amputation. PLAN: 1. Advance diuresis . 2. Other therapy without change. 3. Maximizing anti-failure and anti-anginal regimen, care home. 4. DVT prophylaxis. Satinder Steel M.D. DR: Domi JOB#: [id number] CC: JOSEPH
[2020-01-17] VITALS: BP 117/58
[2020-01-17 04:01] VITALS: BP 120/55
[2020-01-17] MEDS: Nitroglycerin 2% oint pkt TOPIC SCH ×2 (06:37→12:14)
[2020-01-17] MEDS: NovoLOG Insulin Flexpen SUBQ SCH ×2 (06:38→12:16)
--- NOTE | 2020-01-17 07:17 | General Progress Note ---
Assessment/Plan Problem List: (1) CHF (congestive heart failure), NYHA class II ICD Codes: I50.9 - Heart failure, unspecified SNOMED: 218084176, 009095405 (2) CAD (coronary artery disease) ICD Codes: I25.10 - Atherosclerotic heart disease of [place] coronary artery without angina pectoris SNOMED: 71473901 (3) Diabetes ICD Codes: E11.9 - Type 2 diabetes mellitus without complications SNOMED: 13329193 (4) Accelerated essential hypertension ICD Codes: I10 - Essential (primary) hypertension SNOMED: 41610005 Status: stable, progressing Assessment/Plan: cont current rx diuresis elevated legs monitor bs Subjective ROS Limited/Unobtainable: No Constitutional: Reports: weakness HEENT: Reports: no symptoms Cardiovascular: Reports: edema Respiratory: Reports: no symptoms Gastrointestinal/Abdominal: Reports: no symptoms Genitourinary: Reports: no symptoms Neurologic/Psychiatric: Reports: no symptoms Endocrine: Reports: no symptoms Hematologic/Lymphatic: Reports: no symptoms Allergies: Coded Allergies: No Known Allergies (Verified , 10/19/09) All Systems: reviewed and negative except above Subjective no complaints. no cp/sob. no fever or chills. no vomiting. cards noted. Objective Last 24 Hour Vital Signs Date Time Temp Pulse Resp B/P (MAP) Pulse Ox O2 Delivery O2 Flow Rate FiO2 01/17/20 06:37 120/55 01/17/20 04:09 80 01/17/20 04:01 97.8 83 17 120/55 (76) 96 01/17/20 00:00 97.6 80 18 117/58 (77) 96 01/17/20 00:00 76 01/16/20 21:00 Room Air 01/16/20 20:00 82 01/16/20 20:00 97.6 84 16 121/60 (80) 96 01/16/20 17:40 113/74 01/16/20 16:00 75 01/16/20 16:00 97.3 68 20 113/74 (87) 94 01/16/20 12:33 102/52 01/16/20 12:00 97.7 81 20 102/52 (69) 100 01/16/20 12:00 82 01/16/20 09:00 Room Air 01/16/20 08:59 80 120/51 01/16/20 08:59 120/51 01/16/20 08:00 97.9 80 20 120/51 (74) 97 01/16/20 08:00 84 Intake and Output 01/16/20 01/17/20 19:00 07:00 Intake Total 600 ml 240 ml Balance 600 ml 240 ml Intake Oral 600 ml 240 ml # Voids 6 3 # Bowel Movements 1 Laboratory Tests 01/16/20 07:35: Sodium Level 142, Potassium Level 4.2, Chloride Level 101, Carbon Dioxide Level 34H, Anion Gap 7, Blood Urea Nitrogen 24H, Creatinine 1.5H, Estimat Glomerular Filtration Rate 45.0, Glucose Level 94#, Calcium Level 10.0, Magnesium Level 2.2 , Total Bilirubin 1.1H, Direct Bilirubin 0.1, Aspartate Amino Transf (AST/SGOT) 21, Alanine Aminotransferase (ALT/SGPT) 17, Alkaline Phosphatase 128H, Pro-B- Type Natriuretic Peptide 5217H, Total Protein 7.5, Albumin 3.8, Globulin 3.7, Albumin/Globulin Ratio 1.0 Height (Feet): 5 Height (Inches): 4.00 Weight (Pounds): 162 General Appearance: WD/WN, alert Neck: supple Cardiovascular: regular rhythm Respiratory/Chest: lungs clear, normal breath sounds, no respiratory distress, no accessory muscle use Abdomen: normal bowel sounds, non tender, soft, no organomegaly Edema: trace edema Neurologic: lion trainer II-XII grossly normal, alert, oriented x 3, responsive Maxi Douglas MD Jan 17, 2020 07:17
--- NOTE | 2020-01-17 07:48 | NUR ---
HAND-OFF: Report given to Bernice RN
--- NOTE | 2020-01-17 07:50 | NUR ---
NURSE NOTES: Received report from Hanane/RN, Patient is awake and alert, siting up on bed, eating breakfast. On room air, No acute distress/SOB noted. Able to make needs known, Beatris pain at this time. IV on Left hand, Patent, no bleeding or infiltration noted. Bed in low position and locked, bed alarm engaged, Side rails up x3. call light within reach, Encouraged to use call light when needed. Will continue plan of care.
[2020-01-17 08:00] VITALS: BP 110/53
[2020-01-17 08:17] LABS: ANION GAP 10 mmol/L (5-15); BLOOD UREA NITROGEN 42 mg/dL (7-18); CARBON DIOXIDE 31 MMOL/L (21-32); CHLORIDE 101 MMOL/L (98-107); CREATININE 1.8 MG/DL (0.55-1.30); POTASSIUM 4.1 MMOL/L (3.5-5.1); SODIUM 141 MMOL/L (136-145)
[2020-01-17] MEDS: Heparin 5000 units/ml inj SUBQ SCH (08:56)
[2020-01-17] MEDS: Spironolactone 25mg tab ORAL SCH (08:57)
[2020-01-17] MEDS: Docusate 100mg cap ORAL SCH (08:57)
[2020-01-17] MEDS: Metoprolol Succinate XL 25mg tab ORAL SCH (08:57)
[2020-01-17 12:00] VITALS: BP 112/51
[2020-01-17 12:14] VITALS: BP 112/51
--- NOTE | 2020-01-17 15:55 | NUR ---
NURSE NOTES: Discharge instruction given to patient's son, Verbalized understanding. IV and back hand removed, no bleeding, or infiltration noted. Patient is in stable condition. Skin intact. Belonging check done, All paperwork signed by Pt's son. Escorted downstairs via wheelchair. Patient left with son via private vehicle.
--- NOTE | 2020-01-17 15:59 | NUR ---
CASE MANAGEMENT:REVIEW 01/14/20 DIRECT ADMIT FROM HOME CC; FAILED OUTPATIENT TREATMENT SI: AC/CHR CHF. ISCHEMIC CARDIOMYOPATHY 96.1 84 22 142/71 H/H-10.3/30.6 PLT-120 BUN+24 CR+1.5 IS: IV LASIX X1 IV LASIX Q12 K-DUR 40MEQ PO X1 K-DUR 20MEQ PO X1 : TO TELEMETRY
--- NOTE | 2020-01-18 06:45 | Progress Note ---
DATE: 01/17/2020 CARDIOLOGY PROGRESS NOTE SUBJECTIVE: No shortness of breath. Significantly decreased swelling in his legs. No chest pain. Anxious to go home. PHYSICAL EXAMINATION: VITAL SIGNS: Blood pressure 112/51, pulse 77, and respiratory rate 20. LUNGS: Clear. CARDIAC: Regular. Normal S1, S2 with a 1/6 systolic apical murmur. ABDOMEN: Soft. EXTREMITIES: Trace edema. LABORATORY DATA: BUN up to 42 and creatinine 1.8. Pro-natriuretic peptide 3500. IMPRESSION: 1. Acute on chronic systolic and diastolic congestive heart failure, now clinically compensated following diuresis. 2. Acute on chronic kidney injury due to diuresis and based on cardiomyopathy, the patient will need to have elevated BUN and creatinine parameters to maintain euvolemia. 3. Hypertensive heart disease with controlled blood pressure. 4. Insulin-requiring diabetes with controlled blood glucose. 5. Coronary artery disease with stable angina and prior history of CABG. PLAN: 1. Transition from IV to oral diuretics. 2. Maintenance dosing and discharge home with close outpatient followup. 3. Counseling regarding dietary salt and fluid restriction. 4. Discussed with his son. Yash [place] JOB#: [id number] CC:
[2020-01-18] MEDS ORDERED: Furosemide 40mg tab ORAL SCH (09:00)
--- NOTE | 2020-01-18 17:18 | Discharge Summary ---
Discharge Summary Discharge Summary _ DATE OF ADMISSION: 01/14/2020 DATE OF DISCHARGE: 01/17/2020 DISCHARGED BY: REASON FOR ADMISSION: 79 years old male with past medical history of coronary artery disease, ischemic cardiomyopathy, hypertension, hypertensive heart disease, diabetes mellitus, diabetic neuropathy and nephropathy, BPH, history of CABG, presented from home with complaining of shortness of breath and bilateral lower extremity edema. Patient reported compliance with his medication and diet. Despite diuretic therapy he reported worsening lower extremity edema and shortness of breath. Since patient failed outpatient treatment , he was admitted to the hospital for further evaluation and management CONSULTANTS: cage tender Dr Steel [facility]: Patient admitted to telemetry floor. Troponin was negative. pro BNP 3995. Chest x-ray revealed bibasilar lung atelectasis with vascular interstitial prominence. Venous duplex bilateral lower extremity revealed no evidence of acute DVT. Patient started on IV diuresis with close monitoring of volumes and cardiorenal parameters. Outpatient diabetic regimen continued. DVT and GI prophylaxis provided. Guideline directed medical therapy for congestive heart failure and antianginal regimen were provided and further maximized by cage tender. Patient was on antiplatelet therapy with Plavix and statin. Supportive care provided. Bowel regimen instituted. Supplemental oxygen was on board as needed to keep pulse oximetry above 92%. Pulse oximetry remained stable on room air. Patient clinically improved . IV diuretics changed to oral route. Patient was discharged on maintenance dose of diuretic with close outpatient follow-up. Patient was counseled on fluid restriction and low-salt diet. Patient was stable for discharge. FINAL DIAGNOSES: Acute on chronic systolic and diastolic congestive heart failure Ischemic cardiomyopathy Acute on chronic kidney injury due to diuresis Hypertensive heart disease Insulin dependent diabetes mellitus Coronary artery disease with history of CABG DISCHARGE MEDICATIONS: See Medication Reconciliation list. DISCHARGE INSTRUCTIONS: Patient was discharged home. Follow-up with a primary care provider in one week. I have been assigned to dictate discharge summary for this account. I was not involved in the patient's management. Terese Powell NP Jan 18, 2020 17:18
== END 2020-01-17 15:55 | disposition home or self-care (01) | DRG 291 ==
LOC: 2E 18:49
DX: I13.0 Hypertensive heart and chronic kidney disease with heart failure and stage 1 through stage 4 chronic kidney disease, or unspecified chronic kidney disease (principal); I50.43 Acute on chronic combined systolic (congestive) and diastolic (congestive) heart failure; N17.9 Acute kidney failure, unspecified; Z95.1 Presence of aortocoronary bypass graft; E11.40 Type 2 diabetes mellitus with diabetic neuropathy, unspecified; N40.0 Benign prostatic hyperplasia without lower urinary tract symptoms; I25.5 Ischemic cardiomyopathy; Z79.4 Long term (current) use of insulin; I25.118 Atherosclerotic heart disease of native coronary artery with other forms of angina pectoris; E11.22 Type 2 diabetes mellitus with diabetic chronic kidney disease; N18.9 Chronic kidney disease, unspecified; E11.51 Type 2 diabetes mellitus with diabetic peripheral angiopathy without gangrene; Z89.421 Acquired absence of other right toe(s)
CPT/HCPCS: 36415; 71045; 80048; 80053; 82248; 82962; 83735; 83880; 84443; 84484; 85025; 93005; 93970; J1815; J8499